=== PATIENT | male | born 1990 | race Caucasian/White ===

== ENCOUNTER 2016-07-31 14:30 | Emergency (ER) | payer OTHER ==
[2016-07-31 14:59] VITALS: BP 169/93; PULSE 122; RESP 20; TEMP 98.3
[2016-07-31] MEDS ORDERED: LORazepam 2 MG/ML SYRINGE IM STA (15:33)
[2016-07-31] MEDS ORDERED: IBUPROFEN 800 MG TAB PO STA (15:34)
--- NOTE | 2016-07-31 16:54 | ED ---
General Adult HPI - General Chief complaint: Neck Pain/Injury Stated complaint: Neck Pain /Anxiety Time Seen by Provider: 07/31/16 15:24 Source: patient Mode of arrival: ambulatory Limitations: no limitations - History of Present Illness Initial comments: This 26-year-old white male presents complaining of anxiety. He has a long- standing history of anxiety but it has been worse over the past several days. He states that he has been pacing continuously. He has had decreased sleep. He is unsure what triggered his anxiety. He states that he's been having some mild neck pain bilaterally and this seems to stress him out. He's been reading medical stuff on the Internet and is worried about any severe pathology. His mom is present as well and states that he has obsessive-compulsive problems as well. No other complaints or modifying factors. - Related Data Home Medications Medication Instructions Recorded Confirmed Ibuprofen [Motrin] 400 mg PO Q6HR PRN 07/31/16 07/31/16 Ibuprofen/Diphenhydramine HCl 1 cap PO HS PRN 07/31/16 07/31/16 [Advil Pm Liqui-Gels] Previous Rx's Medication Instructions Recorded ALPRAZolam [Xanax] 0.5 mg PO Q8HR PRN #15 tab 07/31/16 Cyclobenzaprine [Flexeril] 10 mg PO TID PRN #20 tab 07/31/16 Ibuprofen [Motrin] 800 mg PO Q8H PRN #20 tab 07/31/16 Allergies Allergy/AdvReac Type Severity Reaction Status Date / Time Penicillins Allergy Rash/Hives Verified 07/31/16 15:18 Review of Systems ROS Statement: Those systems with pertinent positive or pertinent negative responses have been documented in the HPI. ROS Other: All systems not noted in ROS Statement are negative. Past Medical History Past Medical History: No Reported History History of Any Multi-Drug Resistant Organisms: None Reported Past Surgical History: No Surgical Hx Reported Past Psychological History: Anxiety Smoking Status: Never smoker Past Alcohol Use History: Rare Past Drug Use History: None Reported General Exam - General Exam Comments Initial Comments: GENERAL: The patient is well nourished and well hydrated. VITAL SIGNS: Heart rate, blood pressure, respiratory rate reviewed as recorded in nurse's notes. EYES: Pupils are round and reactive. Extraocular movements are intact. No conjunctival / lid redness or swelling. ENT: No external evidence of injury, swelling, or ecchymosis. Airway is patent. Throat is clear. NECK: There is mild tenderness and muscle spasm in the bilateral paracervical musculature. No swelling or evidence of injury. No subcutaneous emphysema. Trachea is midline. No thyroid mass. HEART: Regular rate and rhythm. Good peripheral pulses. LUNGS/CHEST: Breath sounds clear and equal bilaterally. No rales, rhonchi, or wheezes. No ecchymosis, subcutaneous emphysema, or tenderness. ABDOMEN: Abdomen soft without tenderness. No palpable masses or organomegaly. No peritoneal signs. No abdominal wall swelling or ecchymosis. EXTREMITIES: No extremity tenderness. Normal muscle tone and function. No thoracolumbar tenderness. NEUROLOGIC: Sensation is grossly intact. Cranial nerve exam reveals face is symmetrical, tongue is midline, speech is clear. SKIN: No abrasions or ecchymosis is noted. No induration or masses noted. PSYCHIATRIC: Alert and oriented. Appears very anxious. Limitations: no limitations Course Vital Signs 07/31/16 14:56 Temperature 98.3 F Pulse Rate 122 H Respiratory 20 Rate Blood Pressure 169/93 O2 Sat by Pulse 98 Oximetry Medical Decision Making - Medical Decision Making The patient was seen and examined. He receives 1.5 mg of Ativan IM as well as 800 mg Motrin and he is feeling markedly improved on recheck. It is felt that he does have significant underlying anxiety. He may have a slight cervical strain as well. It is felt as though he is stable for discharge. He has an appointment with his practitioner tomorrow. It is felt as though he may benefit from being on an SSRI medication as they feel fit. Disposition Clinical Impression: Strain of neck muscle, Anxiety Disposition: HOME SELF-CARE Condition: Good Instructions: Cervical Strain (ED), Generalized Anxiety Disorder (ED) Prescriptions: ALPRAZolam [Xanax] 0.5 mg PO Q8HR PRN #15 tab PRN Reason: Anxiety Cyclobenzaprine [Flexeril] 10 mg PO TID PRN #20 tab PRN Reason: neck pain Ibuprofen [Motrin] 800 mg PO Q8H PRN #20 tab PRN Reason: Pain Referrals: Graeme Ott MD [Primary Care Provider] - 1-2 days Time of Disposition: 16:54
== END 2016-07-31 17:11 | disposition home or self-care (01) ==
LOC: EC 14:30
DX: S16.1XXA Strain of muscle, fascia and tendon at neck level, initial encounter (principal); F41.9 Anxiety disorder, unspecified; Z88.0 Allergy status to penicillin; X58.XXXA Exposure to other specified factors, initial encounter
CPT/HCPCS: 99283; 96372; J2060

== ENCOUNTER → 2016-08-06 | Outpatient (CLI) | payer OTHER ==
--- NOTE | 2016-08-06 18:34 | XR ---
EXAMINATION TYPE: XR cervical spine limited DATE OF EXAM: 08/06/2016 COMPARISON: NONE HISTORY: Neck pain TECHNIQUE: 3 views FINDINGS: Vertebra have normal spacing and alignment. Posterior elements are intact. Atlantoaxial fac et joint is normal. There are no cervical ribs. IMPRESSION: Negative cervical spine exam.
== END | disposition home or self-care (01) ==
LOC: RADXRMAIN 17:52
PROVIDERS: ATTEND Internal Medicine
DX: M54.2 Cervicalgia (principal)
CPT/HCPCS: 72040

== ENCOUNTER → 2016-08-12 | Outpatient (CLI) | payer OTHER ==
[2016-08-12 17:17] LABS: Basophils # (A) 0.1 k/uL (0-0.2); Basophils % (A) 1 %; CH 32.7; CHCM 36.8; Eosinophils # (A) 0.1 k/uL (0-0.7); Eosinophils % (A) 1 %; HCT 47.3 % (39.0-53.0); HDW 2.82; HGB 16.9 gm/dL (13.0-17.5); Luc # (Auto) 0.17; Luc % (Auto) 2; Lymphocytes # (A) 3.1 k/uL (1.0-4.8); Lymphocytes % (A) 37 %; MCH 31.8 pg (25.0-35.0); MCHC 35.7 g/dL (31.0-37.0); MCV 89.1 fL (80.0-100.0); Mean Platelet Volume 7.7; Monocytes # (A) 0.6 k/uL (0-1.0); Monocytes % (A) 7 %; Neutrophils # (A) 4.3 k/uL (1.3-7.7); Neutrophils % (A) 52 %; RBC 5.31 m/uL (4.30-5.90); WBC 8.3 k/uL (3.8-10.6); WBC (Perox) 7.98
[2016-08-12 17:27] LABS: ALT 80 U/L (21-72); AST 34 U/L (17-59); Alkaline Phosphatase 78 U/L (38-126); Anion Gap 12 mmol/L; Blood Urea Nitrogen 8 mg/dL (9-20); Calcium 9.6 mg/dL (8.4-10.2); Carbon Dioxide 27 mmol/L (22-30); Chloride 102 mmol/L (98-107); Glucose 101 mg/dL (74-99); Non-African American GFR(MDRD) >60 (>60 ml/min/1.73 sqM); Potassium 3.9 mmol/L (3.5-5.1); Sodium 141 mmol/L (137-145); Total Bilirubin 0.5 mg/dL (0.2-1.3); Total Protein 7.6 g/dL (6.3-8.2)
== END | disposition home or self-care (01) ==
LOC: LABWHC1 16:50
PROVIDERS: ATTEND Internal Medicine
DX: F41.9 Anxiety disorder, unspecified (principal); M54.12 Radiculopathy, cervical region
CPT/HCPCS: 36415; 80053; 84443; 85025

== ENCOUNTER → 2017-03-30 | Outpatient (CLI) | payer OTHER ==
[2017-03-30 14:50] LABS: T4, Free (Free Thyroxine) 1.02 ng/dL (0.78-2.19)
== END | disposition home or self-care (01) ==
LOC: LABWHC1 13:43
PROVIDERS: ATTEND Internal Medicine Interventional Cardiology
DX: E05.90 Thyrotoxicosis, unspecified without thyrotoxic crisis or storm (principal)
CPT/HCPCS: 36415; 84439; 84443; 84481

== ENCOUNTER 2017-04-02 23:44 | Emergency (ER) | payer OTHER ==
[2017-04-02 23:51] VITALS: RESP 16
--- NOTE | 2017-04-02 23:57 | ED ---
Nausea/Vomiting/Diarrhea HPI - General Chief complaint: Nausea/Vomiting/Diarrhea Stated complaint: poss food poisoning Time Seen by Provider: 04/02/17 23:57 Source: patient Mode of arrival: ambulatory Limitations: no limitations - History of Present Illness Initial comments: Patient presents with sudden onset diarrhea. Patient states she ate at fast food restaurant at noon today. States partially one hour later he began having profuse diarrhea every hour. Patient states he vomited once while in the waiting room at the ER. Patient denies blood in vomit or stools. She complains of mild bilateral lower abdominal cramping with bowel movements. Patient states no recent illnesses, everything was normal up until this afternoon. Patient febrile on arrival to ER, states she's had no other fevers prior. 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 Patient has had no medications prior to arrival. Patient denies any past medical history. Denies prior surgeries on her abdomen. MD complaint: nausea, vomiting, diarrhea, abdominal pain - Related Data Home Medications Medication Instructions Recorded Confirmed Ibuprofen [Motrin] 400 mg PO Q6HR PRN 07/31/16 07/31/16 Ibuprofen/Diphenhydramine HCl 1 cap PO HS PRN 07/31/16 07/31/16 [Advil Pm Liqui-Gels] Previous Rx's Medication Instructions Recorded ALPRAZolam [Xanax] 0.5 mg PO Q8HR PRN #15 tab 07/31/16 Cyclobenzaprine [Flexeril] 10 mg PO TID PRN #20 tab 07/31/16 Ibuprofen [Motrin] 800 mg PO Q8H PRN #20 tab 07/31/16 Acetaminophen Tab [Tylenol Tab] 650 mg PO Q4H PRN #30 tablet 04/03/17 Ciprofloxacin HCl [Cipro] 500 mg PO BID 3 Days #6 tab 04/03/17 Dicyclomine [Bentyl] 20 mg PO BID PRN #10 tablet 04/03/17 Trimethobenzamide [Tigan] 300 mg PO TID PRN #10 capsule 04/03/17 Allergies Allergy/AdvReac Type Severity Reaction Status Date / Time Penicillins Allergy Rash/Hives Verified 07/31/16 15:18 Review of Systems ROS Statement: Those systems with pertinent positive or pertinent negative responses have been documented in the HPI. ROS Other: All systems not noted in ROS Statement are negative. Constitutional: Reports: fever. Denies: chills, weakness Eyes: Denies: vision change ENT: Denies: ear pain, throat pain, congestion Respiratory: Denies: cough, dyspnea, wheezes, hemoptysis, stridor Cardiovascular: Denies: chest pain, palpitations, syncope Endocrine: Denies: fatigue Gastrointestinal: Reports: abdominal pain, nausea, vomiting, diarrhea. Denies: constipation, hematemesis, melena, hematochezia Genitourinary: Denies: urgency, dysuria, frequency, hematuria Musculoskeletal: Denies: joint swelling, arthralgia, myalgia Skin: Denies: rash, change in color Neurological: Denies: headache, confusion Past Medical History Past Medical History: No Reported History Additional Past Medical History / Comment(s): tachycardia History of Any Multi-Drug Resistant Organisms: None Reported Past Surgical History: No Surgical Hx Reported Past Psychological History: Anxiety Smoking Status: Never smoker Past Alcohol Use History: Rare Past Drug Use History: None Reported General Exam - General Exam Comments Initial Comments: Sitting up in bed alert. Appears mildly nauseated. Calm, pleasant, smiling, making jokes. Limitations: no limitations General appearance: alert, in no apparent distress Head exam: Present: atraumatic, normocephalic Eye exam: Present: normal appearance, PERRL, EOMI ENT exam: Present: normal oropharynx, mucous membranes moist Neck exam: Present: normal inspection. Absent: tenderness, meningismus, full ROM Respiratory exam: Present: normal lung sounds bilaterally. Absent: respiratory distress, wheezes, rales, rhonchi, stridor Cardiovascular Exam: Present: normal rhythm, tachycardia GI/Abdominal exam: Present: soft, hyperactive bowel sounds. Absent: distended, tenderness, guarding, rebound, rigid, hernia Extremities exam: Present: other (No gross deformities) Neurological exam: Present: alert, oriented X3 Psychiatric exam: Present: normal affect, normal mood Skin exam: Present: warm, dry, intact, normal color. Absent: rash, diaphoretic Course Vital Signs 04/02/17 04/03/17 04/03/17 23:45 00:39 01:27 Temperature 101.3 F H 98.7 F Pulse Rate 121 H 107 H 96 Respiratory 16 16 Rate Blood Pressure 133/80 124/78 O2 Sat by Pulse 98 98 Oximetry Medical Decision Making - Medical Decision Making Visual sudden onset diarrhea followed by vomiting, likely gastrointestinal illness possible flu versus foodborne illness. Tachycardic, patient states he has baseline tachycardia, mother at bedside confirms, has seen a physician for it. Will give IV fluids, Zofran, Toradol, Bentyl reevaluate. Abdomen is nontender, do not feel imaging test warranted at this time. 00:42 getting meds. HR improved to 101 after 1L IV fluids, will given 2nd. White blood cell count 14.9, likely reactive secondary to vomiting and diarrhea. No significant electrolyte abnormalities. Influenza negative LA 1.8 Patient tolerating oral intake in the ER. Tachycardia resolved, fever resolved. Severity Symptoms and Fever We'll Give Prescription of Antibiotics, Ciprofloxacin, As Well As Tylenol for Fevers, Tigan for Nausea Given QT Prolongation of Cipro, & bentyl for abd cramps. Patient updated without results. Understands need to follow up with primary care physician. Understands need to return to ER immediately if there are worsening symptoms including uncontrolled fevers, inability to tolerate oral intake, increased abdominal pain, localized abdominal pain to right lower quadrant or RUQ. Oral hydration discussed. Patient mother understand and agree , feel comfortable being discharged home this time. Abd pain resolved at time of discharge, abd remains nontender. - Lab Data Result diagrams: 04/03/17 00:20 04/03/17 00:20 Lab Results 04/03/17 04/03/17 04/03/17 Range/Units 00:20 00:20 00:20 WBC 14.9 H (3.8-10.6) k/uL RBC 5.52 (4.30-5.90) m/uL Hgb 17.3 (13.0-17.5) gm/dL Hct 49.5 (39.0-53.0) % MCV 89.7 (80.0-100.0) fL MCH 31.3 (25.0-35.0) pg MCHC 34.9 (31.0-37.0) g/dL RDW 12.6 (11.5-15.5) % Plt Count 263 (150-450) k/uL Neutrophils % 89 % Lymphocytes % 5 % Monocytes % 4 % Eosinophils % 2 % Basophils % 0 % Neutrophils # 13.3 H (1.3-7.7) k/uL Lymphocytes # 0.7 L (1.0-4.8) k/uL Monocytes # 0.5 (0-1.0) k/uL Eosinophils # 0.2 (0-0.7) k/uL Basophils # 0.0 (0-0.2) k/uL Sodium 142 (137-145) mmol/L Potassium 4.2 (3.5-5.1) mmol/L Chloride 103 (98-107) mmol/L Carbon Dioxide 23 (22-30) mmol/L Anion Gap 16 mmol/L BUN 12 (9-20) mg/dL Creatinine 1.00 (0.66-1.25) mg/dL Est GFR (MDRD) Af Amer >60 (>60 ml/min/1.73 sqM) Est GFR (MDRD) Non-Af >60 (>60 ml/min/1.73 sqM) Glucose 123 H (74-99) mg/dL Plasma Lactic Acid Jesus (0.7-2.0) mmol/L Calcium 10.0 (8.4-10.2) mg/dL Total Bilirubin 0.9 (0.2-1.3) mg/dL AST 31 (17-59) U/L ALT 66 (21-72) U/L Alkaline Phosphatase 94 (38-126) U/L Total Protein 8.4 H (6.3-8.2) g/dL Albumin 4.9 (3.5-5.0) g/dL Lipase 61 (23-300) U/L Urine Color Urine Appearance (Clear) Urine pH (5.0-8.0) Ur Specific [place] (1.001-1.035) Urine Protein (Negative) Urine Glucose (UA) (Negative) Urine Ketones (Negative) Urine Blood (Negative) Urine Nitrite (Negative) Urine Bilirubin (Negative) Urine Urobilinogen (<2.0) mg/dL Ur Leukocyte Esterase (Negative) Urine RBC (0-5) /hpf Urine WBC (0-5) /hpf Hyaline Casts (0-2) /lpf Urine Mucus (None) /hpf Influenza Type A RNA Not Detected (Not Detectd) Influenza Type B (PCR) Not Detected (Not Detectd) 04/03/17 04/03/17 Range/Units 00:36 00:50 WBC (3.8-10.6) k/uL RBC (4.30-5.90) m/uL Hgb (13.0-17.5) gm/dL Hct (39.0-53.0) % MCV (80.0-100.0) fL MCH (25.0-35.0) pg MCHC (31.0-37.0) g/dL RDW (11.5-15.5) % Plt Count (150-450) k/uL Neutrophils % % Lymphocytes % % Monocytes % % Eosinophils % % Basophils % % Neutrophils # (1.3-7.7) k/uL Lymphocytes # (1.0-4.8) k/uL Monocytes # (0-1.0) k/uL Eosinophils # (0-0.7) k/uL Basophils # (0-0.2) k/uL Sodium (137-145) mmol/L Potassium (3.5-5.1) mmol/L Chloride (98-107) mmol/L Carbon Dioxide (22-30) mmol/L Anion Gap mmol/L BUN (9-20) mg/dL Creatinine (0.66-1.25) mg/dL Est GFR (MDRD) Af Amer (>60 ml/min/1.73 sqM) Est GFR (MDRD) Non-Af (>60 ml/min/1.73 sqM) Glucose (74-99) mg/dL Plasma Lactic Acid Jesus 1.8 (0.7-2.0) mmol/L Calcium (8.4-10.2) mg/dL Total Bilirubin (0.2-1.3) mg/dL AST (17-59) U/L ALT (21-72) U/L Alkaline Phosphatase (38-126) U/L Total Protein (6.3-8.2) g/dL Albumin (3.5-5.0) g/dL Lipase (23-300) U/L Urine Color Yellow Urine Appearance Clear (Clear) Urine pH 6.0 (5.0-8.0) Ur Specific [place] 1.027 (1.001-1.035) Urine Protein 1+ H (Negative) Urine Glucose (UA) Negative (Negative) Urine Ketones 1+ H (Negative) Urine Blood Negative (Negative) Urine Nitrite Negative (Negative) Urine Bilirubin Negative (Negative) Urine Urobilinogen <2.0 (<2.0) mg/dL Ur Leukocyte Esterase Negative (Negative) Urine RBC 1 (0-5) /hpf Urine WBC 2 (0-5) /hpf Hyaline Casts 3 H (0-2) /lpf Urine Mucus Many H (None) /hpf Influenza Type A RNA (Not Detectd) Influenza Type B (PCR) (Not Detectd) Disposition Clinical Impression: Food poisoning, Diarrhea, Fever, Abdominal pain Disposition: HOME SELF-CARE Condition: Good Instructions: Acute Nausea and Vomiting (ED), Acute Diarrhea (ED), Abdominal Pain (ED) Additional Instructions: Followup with primary care physician 1-2 days. Return to ER immediately if new or worsening symptoms including increased abdominal pain, uncontrolled fevers, inability to tolerate oral intake. Prescriptions: Acetaminophen Tab [Tylenol Tab] 650 mg PO Q4H PRN #30 tablet PRN Reason: Fever Ciprofloxacin HCl [Cipro] 500 mg PO BID 3 Days #6 tab Dicyclomine [Bentyl] 20 mg PO BID PRN #10 tablet PRN Reason: Abdominal cramps Trimethobenzamide [Tigan] 300 mg PO TID PRN #10 capsule PRN Reason: Nausea Referrals: Graeme Ott MD [Primary Care Provider] - 1-2 days
[2017-04-03] MEDS ORDERED: SODIUM CHLORIDE 0.9% 2,000 ML IV STA (00:01)
[2017-04-03] MEDS ORDERED: ONDANSETRON ODT 4 MG TAB PO STA (00:01)
[2017-04-03] MEDS ORDERED: DICYCLOMINE 10 MG/ML 2 ML AMP IM STA (00:02)
[2017-04-03] MEDS ORDERED: KETOROLAC 30 MG/ML 1 ML VIAL IVP STA (00:02)
[2017-04-03] MEDS ORDERED: ACETAMINOPHEN TAB 325 MG TAB PO STA (00:05)
[2017-04-03 00:37] LABS: Basophils % (A) 0 %; Eosinophils # (A) 0.2 k/uL (0-0.7); Eosinophils % (A) 2 %; HCT 49.5 % (39.0-53.0); HGB 17.3 gm/dL (13.0-17.5); Lymphocytes # (A) 0.7 k/uL (1.0-4.8); Lymphocytes % (A) 5 %; MCH 31.3 pg (25.0-35.0); MCHC 34.9 g/dL (31.0-37.0); MCV 89.7 fL (80.0-100.0); Mean Platelet Volume 7.5; Monocytes # (A) 0.5 k/uL (0-1.0); Monocytes % (A) 4 %; Neutrophils # (A) 13.3 k/uL (1.3-7.7); Neutrophils % (A) 89 %; Platelet Count 263 k/uL (150-450); RBC 5.52 m/uL (4.30-5.90); RDW 12.6 % (11.5-15.5); WBC 14.9 k/uL (3.8-10.6)
[2017-04-03 00:40] VITALS: BP 124/78
[2017-04-03 00:45] LABS: ALT 66 U/L (21-72); AST 31 U/L (17-59); Albumin 4.9 g/dL (3.5-5.0); Alkaline Phosphatase 94 U/L (38-126); Anion Gap 16 mmol/L; Blood Urea Nitrogen 12 mg/dL (9-20); Carbon Dioxide 23 mmol/L (22-30); Chloride 103 mmol/L (98-107); Glucose 123 mg/dL (74-99); Lipase 61 U/L (23-300); Potassium 4.2 mmol/L (3.5-5.1); Sodium 142 mmol/L (137-145); Total Bilirubin 0.9 mg/dL (0.2-1.3); Total Protein 8.4 g/dL (6.3-8.2)
[2017-04-03 01:27] VITALS: PULSE 96; TEMP 98.7
[2017-04-03] MEDS ORDERED: DICYCLOMINE 20 MG TAB PO STA (01:27)
[2017-04-03 01:30] LABS: Appearance,Urine Clear (Clear); Bilirubin,Urine Negative (Negative); Blood,Urine Negative (Negative); Color,Urine Yellow; Glucose,Urine (UA) Negative (Negative); Hyaline Casts,Urine 3 /lpf (0-2); Ketones,Urine 1+ (Negative); Leukocyte Esterase,Urine Negative (Negative); Mucus,Urine Many /hpf; Nitrite,Urine Negative (Negative); Protein,Urine 1+ (Negative); RBC,Urine 1 /hpf (0-5); Specific Gravity,Urine 1.027 (1.001-1.035); Urobilinogen,Urine <2.0 mg/dL (<2.0); WBC,Urine 2 /hpf (0-5)
== END 2017-04-03 02:26 | disposition home or self-care (01) ==
LOC: EC 23:44
DX: A05.9 Bacterial foodborne intoxication, unspecified (principal); R00.0 Tachycardia, unspecified; Z88.0 Allergy status to penicillin; Z53.20 Procedure and treatment not carried out because of patient's decision for unspecified reasons
CPT/HCPCS: 36415; 80053; 83605; 83690; 85025; 81001; 87040; 87502; 99284; 96374; 96361 ×2; J1885

== ENCOUNTER → 2018-07-07 | Outpatient (CLI) | payer BC ==
--- NOTE | 2018-07-07 13:41 | US ---
EXAMINATION TYPE: US abdomen complete DATE OF EXAM: 07/07/2018 COMPARISON: NONE CLINICAL HISTORY: R10.13 Dyspepsia. Dyspepsia x many years. EXAM MEASUREMENTS: Liver Length: 15.0 cm Gallbladder Wall: 0.17 cm CBD: 0.44 cm Spleen: 11.6 cm Right Kidney: 9.6 x 5.6 x 6.4 cm Left Kidney: 12.2 x 5.4 x 5.7 cm Pancreas: Limited due to gas, portions seen appear wnl Liver: Anechoic area seen right lobe measurin.1 x 6.2 x 5.5 cm., Increased through transmission and imperceptible wall Increased echogenicity. Gallbladder: appears wnl Evidence for sonographic Chavez's sign: No CBD: appears wnl Spleen: appears wnl Right Kidney: No hydronephrosis or masses seen Left Kidney: No hydronephrosis or masses seen. Probable column of Tim seen. Upper IVC: appears wnl Abd Aorta: Limited visibility of proximal portion. Portions seen appear wnl. Kidneys show normal cortical medullary differentiation There is no ascites. IMPRESSION: Exam is somewhat limited. Correlate for hepatocellular disease, hepatic steatosis, probab le cyst within the posterior liver.
== END | disposition home or self-care (01) ==
LOC: RADUSWWP 10:01
PROVIDERS: ATTEND Internal Medicine
DX: R10.13 Epigastric pain (principal)
CPT/HCPCS: 76700

== ENCOUNTER → 2018-11-23 | Outpatient (CLI) | payer BC ==
--- NOTE | 2018-11-24 07:30 | US ---
EXAMINATION TYPE: US thyroid st tissue head/neck DATE OF EXAM: 11/23/2018 COMPARISON: NONE CLINICAL HISTORY: E04.9 GOITER. mother had thyroid cancer, palp at right submandible area that he has felt for years GLAND SIZE: Right Lobe: 5.1 x 1.3 x 1.8 cm Overall Parenchyma: homogenous Left Lobe: 4.4 x 1.4 x 1.2 cm Overall Parenchyma: homogeneous Isthmus Thickness: 0.3 cm NODULES RIGHT: # of nodules measured on right: 1 1. 0.6 X 0.6 x 0.6 cm hypoechoic solid nodule at the medial pole with well-defined margins. This n odule shows intranodular vascularity. Prior size: WAITRESS LEFT: # of nodules measured on left: 0 ISTHMUS: # of nodules measured in the isthmus: 0 Bilateral neck scanned, no evidence of lymphadenopathy. *right sided lymph node 2.4 x 1.7 x 0.7cm, fatty hilum still seen with vascularity noted, patient sta kianna it goes up in size when sick and back down afterwards IMPRESSION: 1. Solitary 6 mm right thyroid nodule. This appears solid and has internal vascularity however this i s too small for fine-needle aspiration at this time. Follow up thyroid ultrasound is recommended in 6 -12 months. 2. There is a single prominent right submandibular lymph node. This measures within normal limits of short axis and maintains a fatty hilum although is asymmetric from the left. This can be reassessed o n the follow-up exam. If there is clinical suspicion CT neck could further evaluate for additional ad enopathy more neck mass.
== END | disposition home or self-care (01) ==
LOC: RADUSWWP 15:35
PROVIDERS: ATTEND Internal Medicine
DX: E04.1 Nontoxic single thyroid nodule (principal); R59.0 Localized enlarged lymph nodes
CPT/HCPCS: 76536

== ENCOUNTER → 2018-11-30 | Outpatient (CLI) | payer BC ==
--- NOTE | 2018-11-30 10:36 | CT ---
EXAMINATION TYPE: CT soft tissue neck w con DATE OF EXAM: 11/30/2018 7:17 AM COMPARISON: Ultrasound 11/23/2018 HISTORY: Thyroid nodule CT DLP: 528.30 mGycm Automated exposure control for dose reduction was used. CONTRAST: CT scan of the neck is performed following with IV Contrast, patient injected with 100 mL of Isovue 3 00. Axial images are obtained, coronal and sagittal reformatted images are reviewed. FINDINGS: Airway: No gross abnormality seen. Parotid/submandibular glands: No gross abnormality seen. Carotid/Vascular Structures: Patent carotid arteries, transverse aorta, innominate, left and right segura bclavian arteries. Vertebral arteries are patent. Right vertebral artery is dominant. Osseous Structures: Within normal limits Other: Nonenlarged lymph nodes are present along the anterior cervical chains bilaterally. Patient's subtle thyroid nodule seen on ultrasound not well seen on CT. IMPRESSION: No significant abnormality is evident.
== END | disposition home or self-care (01) ==
LOC: RADCTMAIN 06:50
PROVIDERS: ATTEND Internal Medicine
DX: E04.1 Nontoxic single thyroid nodule (principal)
CPT/HCPCS: 70491; Q9967

== ENCOUNTER → 2019-11-24 | Outpatient (CLI) | payer BC ==
--- NOTE | 2019-11-24 10:38 | CT ---
EXAMINATION TYPE: CT abdomen pelvis wo con DATE OF EXAM: 11/24/2019 HISTORY: Left upper quadrant fullness and pain. CT DLP: 795.1 mGycm. Automated Exposure Control for Dose Reduction was Utilized. TECHNIQUE: CT scan of the abdomen and pelvis is performed with low oral but without IV contrast. COMPARISON: NONE FINDINGS: Within the limitations of a non-contrast study, the following observations are made. LUNG BASES: Heterogeneous geographic areas of low density consistent with areas of diffuse fatty infi ltration. LIVER/GB: No significant abnormality is appreciated. PANCREAS: No significant abnormality is seen. SPLEEN: No significant abnormality is seen. ADRENALS: Large right adrenal low-density mass measuring 5.9 x 5.4 x 5.7 cm. Local mass effect presen t. Hounsfield units average 12-15. Malignant etiology cannot be excluded. Follow-up advised. KIDNEYS: No renal stones or hydronephrosis seen bilaterally . BOWEL: The oral contrast reaches level of the splenic flexure. No suspicious small or large bowel dil atation. Normal contrast-filled appendix. GENITAL ORGANS: Prostate not enlarged. Occasional scattered pelvic phleboliths. LYMPH NODES: No greater than 1cm abdominal or pelvic lymph nodes are appreciated. OSSEOUS STRUCTURES: No significant abnormality is seen. OTHER: No significant additional abnormality is seen. IMPRESSION: 1. No suspicious abnormalities, for patient's complaint of left upper quadrant fullness and pain. 2. Low dense 5.9 cm right adrenal mass, Hounsfield units favor benign etiology but because greater th an 10 malignant etiology is not excluded. Follow-up adrenal protocol contrast enhanced CT or MRI advi sed. Local mass effect is present.
== END | disposition home or self-care (01) ==
LOC: RADCTMAIN 08:31
PROVIDERS: ATTEND Internal Medicine
DX: E27.8 Other specified disorders of adrenal gland (principal)
CPT/HCPCS: 74176

== ENCOUNTER → 2019-12-05 | Outpatient (CLI) | payer BC ==
--- NOTE | 2019-12-05 17:25 | US ---
EXAMINATION TYPE: US thyroid st tissue head/neck DATE OF EXAM: 12/05/2019 COMPARISON: 11/23/2018 CLINICAL HISTORY: 29-year-old male E04.1 THYROID NODULE. Followup. TECHNIQUE: Multiple sonographic images of the thyroid gland are obtained. FINDINGS: GLAND SIZE: Right Lobe: 4.8 x 1.9 x 1.8 cm Overall Parenchyma: homogenous Left Lobe: 4.3 x 1.6 x 1.1 cm Overall Parenchyma: homogeneous Isthmus Thickness: 0.3 cm NODULES RIGHT: # of nodules measured on right: 1 1. 0.5 X 0.6 x 0.5 cm hypoechoic solid nodule at the medial pole with well-defined margins. This nodule is wider than tall and shows intranodular vascularity. Prior size: 0.6 x 0.6 x 0.6 cm LEFT: # of nodules measured on left: 0 ISTHMUS: # of nodules measured in the isthmus: 0 Bilateral neck scanned: enlarged lymph node is again seen superior to right thyroid and size = 2.9 x 2.0 x 0.6cm (versus 2.4 x 1.7 x 0.7 cm on 11/23/2018). IMPRESSION: 1. Redemonstrated enlarged lymph node on the right side of the neck above the thyroid gland measuring 2.0 cm short axis versus 1.7 cm short axis on 11/23/2018. Relatively indolent behavior. Continued fol low-up recommended. 2. Solitary 6 mm nodule within the right lobe of the thyroid gland, unchanged from last year.
== END | disposition home or self-care (01) ==
LOC: RADUSWWP 16:15
PROVIDERS: ATTEND Internal Medicine
DX: E04.1 Nontoxic single thyroid nodule (principal); R59.9 Enlarged lymph nodes, unspecified
CPT/HCPCS: 76536

== ENCOUNTER 2021-09-25 18:29 | Emergency (ER) | payer BC, OTHER ==
[2021-09-25 19:09] VITALS: BP 126/86; RESP 22; TEMP 98.5
[2021-09-25 19:41] LABS: Basophils # (A) 0.1 k/uL (0-0.2); Basophils % (A) 1 %; Eosinophils # (A) 0.1 k/uL (0-0.7); Eosinophils % (A) 1 %; HCT 50.2 % (39.0-53.0); HGB 17.1 gm/dL (13.0-17.5); Lymphocytes # (A) 2.1 k/uL (1.0-4.8); Lymphocytes % (A) 20 %; MCHC 34.1 g/dL (31.0-37.0); Mean Platelet Volume 7.8; Monocytes # (A) 0.5 k/uL (0-1.0); Monocytes % (A) 5 %; Neutrophils # (A) 7.6 k/uL (1.3-7.7); Neutrophils % (A) 72 %; Platelet Count 293 k/uL (150-450); RBC 5.51 m/uL (4.30-5.90); RDW 12.8 % (11.5-15.5); WBC 10.6 k/uL (3.8-10.6)
[2021-09-25 19:56] LABS: ALT 74 U/L (4-49); African American GFR (CKD) >90 (>60 ml/min/1.73 sqM); Anion Gap 14 mmol/L; Blood Urea Nitrogen 11 mg/dL (9-20); Calcium 10.7 mg/dL (8.4-10.2); Carbon Dioxide 21 mmol/L (22-30); Chloride 103 mmol/L (98-107); Glucose 105 mg/dL (74-99); Non-African American GFR(CKD) >90 (>60 ml/min/1.73 sqM); Sodium 138 mmol/L (137-145); Total Bilirubin 0.9 mg/dL (0.2-1.3)
[2021-09-25 20:02] LABS: AST 55 U/L (17-59); Albumin 5.1 g/dL (3.5-5.0); Alkaline Phosphatase 71 U/L (38-126); Potassium 4.3 mmol/L (3.5-5.1); Total Protein 8.3 g/dL (6.3-8.2)
[2021-09-25 22:17] VITALS: PULSE 92
--- NOTE | 2021-09-25 22:19 | XR ---
EXAMINATION TYPE: XR chest 2V DATE OF EXAM: 09/25/2021 COMPARISON: NONE HISTORY: Cough and chest pain TECHNIQUE: 2 view FINDINGS: Heart and mediastinum are normal. Lungs are clear. Diaphragm is normal. Bony thorax appears normal. IMPRESSION: Normal chest.
--- NOTE | 2021-09-26 00:04 | ED ---
Chest Pain HPI - General Chief Complaint: Chest Pain Stated Complaint: chest pain Time Seen by Provider: 09/25/21 21:45 Source: patient Mode of arrival: ambulatory Limitations: no limitations - History of Present Illness Initial Comments: 31-year-old male with history of anxiety presents emergency room with reported chest pain. Patient states that earlier today he had sudden onset of shortness of breath, palpitations and chest pain. Episode happened around 6 PM prior to cooking dinner. Denies any stressful triggers. Symptoms lasted approximately 20 minutes before they resolve. He denies history of cardiac disease. Does admit to a history of elevated heart rate and follows with Dr. Field. 4 years ago the patient had an echo. He does not take any medications for elevated heart rate. No family history of sudden cardiac . No fevers chills or cough. No calf pain or swelling. No history of DVT or PE. No other alleviating, precipitating or modifying factors - Related Data Home Medications Medication Instructions Recorded Confirmed Triamcinolone 0.1% Cream [Kenalog 1 applicatio TOPICAL BID 09/25/21 09/25/21 0.1% Cream] clonazePAM [KlonoPIN] 0.5 mg PO BID PRN 09/25/21 09/25/21 Previous Rx's Medication Instructions Recorded Propranolol [Inderal] 20 mg PO DAILY PRN #20 tab 09/26/21 Allergies Allergy/AdvReac Type Severity Reaction Status Date / Time Penicillins Allergy Rash/Hives Verified 09/25/21 22:52 Review of Systems ROS Statement: Those systems with pertinent positive or pertinent negative responses have been documented in the HPI. ROS Other: All systems not noted in ROS Statement are negative. EKG Findings - EKG Comments: EKG Findings:: EKG demonstrates sinus tachycardia with a rate of 131. SD interval 138. QRS 88. QTC of 393. No acute ST segment elevations or depressions Past Medical History Past Medical History: No Reported History Additional Past Medical History / Comment(s): tachycardia History of Any Multi-Drug Resistant Organisms: None Reported Past Surgical History: No Surgical Hx Reported Past Psychological History: Anxiety Smoking Status: Never smoker Past Alcohol Use History: Rare Past Drug Use History: None Reported General Exam Limitations: no limitations General appearance: alert, in no apparent distress Head exam: Present: atraumatic, normocephalic, normal inspection Eye exam: Present: normal appearance, PERRL, EOMI. Absent: scleral icterus, conjunctival injection, periorbital swelling ENT exam: Present: normal exam, mucous membranes moist Neck exam: Present: normal inspection. Absent: tenderness, meningismus, lymphadenopathy Respiratory exam: Present: normal lung sounds bilaterally. Absent: respiratory distress, wheezes, rales, rhonchi, stridor Cardiovascular Exam: Present: normal rhythm, tachycardia, normal heart sounds. Absent: systolic murmur, diastolic murmur, rubs, gallop, clicks GI/Abdominal exam: Present: soft, normal bowel sounds. Absent: distended, tenderness, guarding, rebound, rigid Extremities exam: Present: normal inspection, full ROM, normal capillary refill. Absent: tenderness, pedal edema, joint swelling, calf tenderness Back exam: Present: normal inspection Neurological exam: Present: alert, oriented X3, CN II-XII intact Psychiatric exam: Present: normal affect, normal mood Skin exam: Present: warm, dry, intact, normal color. Absent: rash Course Vital Signs 09/25/21 09/25/21 19:06 22:12 Temperature 98.5 F Pulse Rate 65 Pulse Rate [ 92 Apical] Respiratory 22 Rate Blood Pressure 126/86 O2 Sat by Pulse 99 Oximetry Chest Pain MDM - MDM Upon arrival patient was placed in room 16. Thorough history and physical exam was performed. 12-lead EKG was obtained. Laboratory studies are conducted and reviewed. Results are discussed the patient. I did discuss the diagnosis, differential and treatment options. Patient will be discharged home and is asked to follow up with the cardiology office. I will place him on propranolol prn to see if this helps with his symptoms. Return to the emergency room for any worsening symptoms. Patient discharged home in stable condition Disposition Clinical Impression: Chest pain, Palpitations Disposition: HOME SELF-CARE Condition: Stable Instructions (If sedation given, give patient instructions): Chest Pain (ED) Additional Instructions: Please follow-up with the cardiology office for further evaluation. They may want to repeat a Holter monitor study and an echo. Return to the emergency department for any new or worsening symptoms Prescriptions: Propranolol [Inderal] 20 mg PO DAILY PRN #20 tab PRN Reason: Anxiety Is patient prescribed a controlled substance at d/c from ED?: No Referrals: Alma Real MD [Primary Care Provider] - 1-2 days Time of Disposition: 00:04
== END 2021-09-26 00:14 | disposition home or self-care (01) ==
LOC: EC 18:29
DX: R07.9 Chest pain, unspecified (principal); R00.2 Palpitations; Z88.0 Allergy status to penicillin
CPT/HCPCS: 36415; 71046; 80053; 84484; 85025; 93005; 99285

== ENCOUNTER → 2023-03-17 | Outpatient (CLI) | payer BC ==
--- NOTE | 2023-03-17 16:28 | P.SLEEP ---
History of Present Illness H&P Date: 03/17/23 Patient is a 33-year-old male patient who is coming in to be investigated for sleep apnea. The patient has excessive tiredness and sleepiness during the day. He has a bed partner and she has clearly reported that the patient snores and quits breathing at night and he wakes up choking and gasping for air. As such, she gives an adequate description of sleep apnea. The patient feels tired and sleepy during the day and sometimes he has difficulties in keeping his eyes open and his sleepiness takes him more whenever he is going back and forth to work. Note that the patient has a short drive to work and he is currently working for [employer] and he lives locally and he has a short drive. No history of any motor vehicle accidents because of feeling drowsy or sleepy. He goes to bed around 11 PM, wakes up 6 AM in the morning and this is during regular weekdays. On weekends, he is sleeping at around midnight and waking up with 10 to 11 AM in the morning. It takes a few minutes to fall asleep. He tries to sleep in different body positions more so on his side. Frequently, he arrives home and he takes a nap at around 5 PM and sometimes dyspnea can extend up to an hour. His weight is up by around 10 pounds over the past 1 year. No sleep paralysis. No hallucinations. No cataplexy. His current Roscoe score is at 9. No history of any head trauma. He has chronic history of anxiety and depression. Past medical history includes chronic anxiety, depression, panic attack, tachycardia, he is also known to have an adrenal nodule followed by endocrinology Past surgical history is none Allergies penicillins Medication includes Celexa 20 mg p.o. daily, clonazepam 1 mg twice a day metoprolol dose is not known. Social history the patient is a non-smoker. Most of alcoholism. No history of IV drugs or substance abuse Family history. The patient does not know his family history well. Review of system a 14 point review of system was done and opacifies the remainder of the history of present illness. Otherwise, nothing different other than the things mentioned above BP is 122/81 with a pulse of 102 respiration 14 temperature is 98.4 and the height is 511 and the weight is 244 with a body mass index of 33.3. The size of the neck is 18 inches with an Roscoe score of 9. The patient appeared well nourished and normally developed. Vital signs as documented. Head exam is unremarkable. No scleral icterus or corneal arcus noted. The patient is a Mallampati class II. No significant overbite. Neck is without jugular venous distension, thyromegaly, or carotid bruits. Carotid upstrokes are brisk bilaterally. Lungs are clear to auscultation and percussion. Cardiac exam reveals the PMI to be normally sized and situated. Rhythm is regular. First and second heart sounds normal. No murmurs, rubs or gallops. Abdominal exam reveals normal bowel sounds, no masses, no organomegaly and no aortic enlargement. Extremities are nonedematous and both femoral and pedal pulses are normal. Examination of the skin revealed no evidence of significant rashes, suspicious appearing nevi or other concerning lesions. Neurologically, the patient is awake and alert and the patient does not have any focal neurological deficit. Cranial nerves are essentially intact. Assessment Chronic hypersomnia with an Roscoe score of 9. Rule out underlying obstructive sleep apnea Loud snoring with witnessed apneas suspicious for obstructive sleep apnea. Chronic anxiety/depression maintained on Celexa and clonazepam. History of sinus tachycardia maintained on beta-blockers History of adrenal nodules Plan Will sign of this patient for screening polysomnography will make decision on treatment options if needed. Meanwhile, the patient was advised to lose weight. Maintain regular sleep schedule. Sleep hours on average of 8 to 9 hours even during weekdays. Maintain good sleep hygiene measures. Will continue to follow. Past Medical History Past Medical History: No Reported History Additional Past Medical History / Comment(s): tachycardia History of Any Multi-Drug Resistant Organisms: None Reported Past Surgical History: No Surgical Hx Reported Past Psychological History: Anxiety Smoking Status: Never smoker Past Alcohol Use History: Rare Past Drug Use History: None Reported Medications and Allergies Home Medications Medication Instructions Recorded Confirmed Type clonazePAM [KlonoPIN] 0.5 mg PO BID PRN 09/25/21 10/10/21 History Propranolol [Inderal] 20 mg PO DAILY PRN #20 tab 09/26/21 10/10/21 Rx Allergies Allergy/AdvReac Type Severity Reaction Status Date / Time Penicillins Allergy Rash/Hives Verified 10/10/21 17:19 Sleep Note - Sleep Note Sleep Note: Temperature: Pulse Rate: Respiratory Rate: Blood Pressure: SpO2: Height: Weight: BMI: Neck Circumference:
== END ==
LOC: 3 N SLEEP 14:27
PROVIDERS: ATTEND Internal Medicine Critical Care Medicine
DX: G47.10 Hypersomnia, unspecified (principal); F41.9 Anxiety disorder, unspecified; F32.A Depression, unspecified; R06.83 Snoring; Z86.39 Personal history of other endocrine, nutritional and metabolic disease; Z86.79 Personal history of other diseases of the circulatory system; Z88.0 Allergy status to penicillin
CPT/HCPCS: 99211

== ENCOUNTER → 2023-04-07 | Outpatient (CLI) | payer BC ==
--- NOTE | 2023-04-08 12:46 | US ---
EXAMINATION TYPE: US thyroid st tissue head/neck DATE OF EXAM: 04/07/2023 COMPARISON: 12/05/2019 CLINICAL INDICATION: Male, 33 years old with history of E04.1 NONTOXIC SINGLE THYROID NODULE; thyroid nodule GLAND SIZE: Right Lobe: 5.0 x 1.7 x 1.7 cm Overall Parenchyma: homogeneous Left Lobe: 4.7 x 1.2 x 1.7 cm Overall Parenchyma: homogeneous Isthmus Thickness: .4 cm NODULES RIGHT: # of nodules measured on right: 0 LEFT: # of nodules measured on left: 0 ISTHMUS: # of nodules measured in the isthmus: 1 1. Within the right isthmus, 0. 5 X 0.4 x 0.6 cm solid or almost completely solid, hypoechoic TR 4 nodule, which is wider than tall, with smooth margins, without echogenic foci. Prior size: .5 x .5 x .6 cm Bilateral neck scanned, no evidence of lymphadenopathy. IMPRESSION: Borderline thyromegaly. Stable solitary 6 mm TR4 nodule in the right thyroid isthmus. 2017 ACR TI-RADS LEVEL: TR-RADS 4 - Moderately Suspicious: Follow if > 1 cm, FNA if > 1.5 cm *Highest TI-RADS level nodule reported
== END | disposition home or self-care (01) ==
LOC: RADUSWWP 15:07
PROVIDERS: ATTEND Internal Medicine Geriatric Medicine
DX: E04.2 Nontoxic multinodular goiter (principal); R22.0 Localized swelling, mass and lump, head
CPT/HCPCS: 76536

== ENCOUNTER → 2023-04-24 | Outpatient (CLI) | payer BC ==
--- NOTE | 2023-05-04 20:11 | P.PCN ---
Date of Procedure: 04/24/23 Operative Findings: Home sleep study testing Date of services 04/25/2023 Pertinent history This is a 33-year-old male patient who was seen in the sleep center due to concerns of obstructive sleep apnea. The patient reported excessive tiredness and sleepiness during the day. He has been told also to snore and noted to quit breathing at nighttime. He had an Carrington score of 9. He has chronic anxiety depression maintained on a combination of Celexa and clonazepam. He has history of sinus tachycardia maintained on beta-blockers. Home sleep study was obtained to evaluate this patient for sleep apnea Pertinent physical findings The patient had a height of 5 feet 11 inches, weight is 244 pounds and a body mass index is 33.3 Technical description The [employer] apnea link system was used to complete this home sleep study. This is a type III home sleep study evaluation. The total recording duration was 9 hours and 2 minutes. The study started at 1:54 AM and it ended at 10:57 AM. There was a total of 8 hours and 50 minutes of flow evaluation and 8 hours and 50 minutes of oxygen saturation evaluation. Results The respiratory analysis showed a total of 4 obstructive apneas and 16 obstructive hypopneas and the resulting AHI was 2.3. Oxygenation analysis The baseline pulse ox was 96%, average pulse ox during sleep was 93% and the patient spent majority of the sleep time above pulse ox of 89%. No significant desaturations were encountered Cardiac summary Average heart rate was 60, with a minimum heart rate of 47 and a maximum heart rate of 117 Assessment Primary snoring, without evidence of any significant sleep breathing disorder. AHI was 2.3 No evidence of any nocturnal oxygen saturations No evidence of any nocturnal tachycardia and average heart rate was 60 and there was no significant nocturnal tachycardia. Chronic anxiety/depression maintained on a combination of Celexa and clonazepam Plan Patient will be reassured. No evidence of any sleep breathing disorder. The patient has primary snoring without evidence of any sleep apnea. No significant nocturnal tachycardia. Continue Inderal. Continue clonazepam and Celexa for chronic anxiety/depression. Implement good sleep hygiene measures. Maintain regular sleep schedule. No need for CPAP therapy. This is a negative home sleep study. If atrial fibrillation is a concern, the prolonged Holter monitor is suggested and this will be left up to his director script.
== END ==
LOC: 3 N SLEEP 12:40
PROVIDERS: ATTEND Internal Medicine Critical Care Medicine
DX: R06.83 Snoring (principal); F41.9 Anxiety disorder, unspecified; F32.A Depression, unspecified; Z88.0 Allergy status to penicillin

== ENCOUNTER 2024-03-11 17:18 | Emergency (ER) | payer BC ==
--- NOTE | 2024-03-11 19:04 | ED ---
General Adult HPI - General Chief complaint: Fever Stated complaint: fever joint pain Time Seen by Provider: 03/11/24 19:02 Source: patient, RN notes reviewed Mode of arrival: ambulatory Limitations: no limitations - History of Present Illness Initial comments: 34-year-old male presents to the emergency department for evaluation of fever. He notes that he has been running a fever on and off for the past 1.5 days. He states that he had a fever of 103 degrees at home last night and took Tylenol around 2 AM. He has not taken any antipyretics since then. He admits to cough yesterday along with sore throat. Admits to myalgias. He reports a history of tachycardia and takes metoprolol 12.5 mg twice daily. - Related Data Home Medications Medication Instructions Recorded Confirmed clonazePAM [KlonoPIN] 0.5 mg PO BID PRN 09/25/21 10/10/21 Previous Rx's Medication Instructions Recorded Propranolol [Inderal] 20 mg PO DAILY PRN #20 tab 09/26/21 Allergies Allergy/AdvReac Type Severity Reaction Status Date / Time Penicillins Allergy Rash/Hives Verified 03/11/24 18:47 Review of Systems ROS Statement: Those systems with pertinent positive or pertinent negative responses have been documented in the HPI. ROS Other: All systems not noted in ROS Statement are negative. Past Medical History Past Medical History: No Reported History Additional Past Medical History / Comment(s): tachycardia History of Any Multi-Drug Resistant Organisms: None Reported Past Surgical History: No Surgical Hx Reported Past Psychological History: Anxiety Smoking Status: Never smoker Past Alcohol Use History: Rare Past Drug Use History: None Reported General Exam Limitations: no limitations General appearance: alert, in no apparent distress Head exam: Present: atraumatic, normocephalic, normal inspection Eye exam: Present: normal appearance, PERRL, EOMI. Absent: scleral icterus, conjunctival injection, periorbital swelling ENT exam: Absent: normal oropharynx (Erythematous), TM's normal bilaterally (Unable to be visualized due to cerumen impaction) Neck exam: Present: normal inspection, full ROM. Absent: tenderness, meningismus, lymphadenopathy Respiratory exam: Present: normal lung sounds bilaterally. Absent: respiratory distress, wheezes, rales, rhonchi, stridor Cardiovascular Exam: Present: normal rhythm, tachycardia, normal heart sounds. Absent: systolic murmur, diastolic murmur, rubs, gallop, clicks GI/Abdominal exam: Present: soft. Absent: distended, tenderness, guarding, rebound, rigid Extremities exam: Present: normal inspection, full ROM, normal capillary refill. Absent: tenderness, pedal edema, joint swelling, calf tenderness Neurological exam: Present: alert, oriented X3 Psychiatric exam: Present: normal affect, normal mood Skin exam: Present: warm, dry, intact, normal color. Absent: rash Course Vital Signs 03/11/24 03/11/24 03/11/24 18:47 20:41 21:23 Temperature 102.4 F H 101.0 F H 101.7 F H Pulse Rate 136 H 113 H 115 H Respiratory 20 18 14 Rate Blood Pressure 101/49 119/73 112/71 O2 Sat by Pulse 99 95 95 Oximetry 03/11/24 21:52 Temperature 100 F H Pulse Rate 102 H Respiratory 16 Rate Blood Pressure 117/76 O2 Sat by Pulse 95 Oximetry Medical Decision Making - Medical Decision Making Was pt. sent in by a medical professional or institution (Dr. PA, DEVELOPER PROGRAMMER ANALYST, urgent care, hospital, or [facility]...) When possible be specific @ -[No] Did you speak to anyone other than the patient for history (EMS, parent, family, police, friend...)? What history was obtained from this source @ -[No] Did you review nursing and triage notes (agree or disagree)? Why? @ -[I reviewed and agree with nursing and triage notes] Were old charts reviewed (outside hosp., previous admission, EMS record, old EKG, old radiological studies, urgent care reports/EKG's, [facility] records)? Report findings @ -[No old charts were reviewed] Differential Diagnosis (chest pain, altered mental status, abdominal pain women, abdominal pain men, vaginal bleeding, weakness, fever, dyspnea, syncope, headache, dizziness, GI bleed, back pain, seizure, CVA, palpatations, mental health, musculoskeletal)? @ -[Differential Fever: Pneumonia, viral URI, endocarditis, myocarditis, pericarditis, otitis, sinusitis, peritonsillar Abscess, retropharyngeal Abscess, epiglottitis, peritonitis, appendicitis, Nadine cystitis, diverticulitis, hepatitis, colitis, UTI, PID, TOA, pyelonephritis, prostatitis, epididymitis, meningitis, encephalitis, pulmonary embolism, CVA, thyroid storm, pancreatitis, adrenal crisis, cavernous sinus thrombosis, this is not meant to be an all-inclusive list. ] EKG interpreted by me (3pts min.). @ -EKG at 1940 sinus tachycardia rate 120, NC 155, QRS 100, QT/QTc [id number] X-rays interpreted by me (1pt min.). @ -[None done] CT interpreted by me (1pt min.). @ -[None done] U/S interpreted by me (1pt. min.). @ -[None done] What testing was considered but not performed or refused? (CT, X-rays, U/S, labs)? Why? @ -[None] What meds were considered but not given or refused? Why? @ -[None] Did you discuss the management of the patient with other professionals (professionals i.e. , PA, DEVELOPER PROGRAMMER ANALYST, lab, RT, psych nurse, social worker masters, accounting advisory services manager, teacher, youth probation officer, case hardener)? Give summary @ -[No] Was smoking cessation discussed for >3mins.? @ -[No] Was critical care preformed (if so, how long)? @ -[No] Were there social determinants of health that impacted care today? How? (Homelessness, low income, unemployed, alcoholism, drug addiction, transportation, low edu. Level, literacy, decrease access to med. care, fdc, rehab)? @ -[No] Was there de-escalation of care discussed even if they declined (Discuss DNR or withdrawal of care, Hospice)? DNR status @ -[No] What co-morbidities impacted this encounter? (DM, HTN, Smoking, COPD, CAD, Cancer, CVA, ARF, Chemo, Hep., AIDS, mental health diagnosis, sleep apnea, morbid obesity)? @ -[None] Was patient admitted / discharged? Hospital course, mention meds given and route, prescriptions, significant lab abnormalities, going to OR and other pertinent info. @ -[hospital course] Undiagnosed new problem with uncertain prognosis? @ -[No] Drug Therapy requiring intensive monitoring for toxicity (Heparin, Nitro, Insulin, Cardizem)? @ -[No] Were any procedures done? @ -[No] Diagnosis/symptom? @ -[default] Acute, or Chronic, or Acute on Chronic? @ -[default] Uncomplicated (without systemic symptoms) or Complicated (systemic symptoms)? @ -[default] Side effects of treatment? @ -[No] Exacerbation, Progression, or Severe Exacerbation? @ -[No] Poses a threat to life or bodily function? How? (Chest pain, USA, VT, pneumonia, PE, COPD, DKA, ARF, appy, cholecystitis, CVA, Diverticulitis, Homicidal, Suicidal, threat to staff... and all critical care pts) @ -[No] - Lab Data Result diagrams: 03/11/24 19:40 03/11/24 19:40 Lab Results 03/11/24 03/11/24 03/11/24 Range/Units 19:40 19:40 19:40 WBC 7.6 (3.8-10.6) k/uL RBC 5.01 (4.30-5.90) m/uL Hgb 15.7 (13.0-17.5) gm/dL Hct 45.9 (39.0-53.0) % MCV 91.6 (80.0-100.0) fL MCH 31.3 (25.0-35.0) pg MCHC 34.1 (31.0-37.0) g/dL RDW 12.5 (11.5-15.5) % Plt Count 186 (150-450) k/uL MPV 7.6 Neutrophils % 73 % Lymphocytes % 10 % Monocytes % 14 % Eosinophils % 1 % Basophils % 1 % Neutrophils # 5.5 (1.3-7.7) k/uL Lymphocytes # 0.8 L (1.0-4.8) k/uL Monocytes # 1.0 (0-1.0) k/uL Eosinophils # 0.1 (0-0.7) k/uL Basophils # 0.1 (0-0.2) k/uL Sodium (137-145) mmol/L Potassium (3.5-5.1) mmol/L Chloride (98-107) mmol/L Carbon Dioxide (22-30) mmol/L Anion Gap mmol/L BUN (9-20) mg/dL Creatinine (0.66-1.25) mg/dL Est GFR (CKD-EPI)AfAm (>60 ml/min/1.73 sqM) Est GFR (CKD-EPI)NonAf (>60 ml/min/1.73 sqM) Glucose (74-99) mg/dL Calcium (8.4-10.2) mg/dL Total Bilirubin (0.2-1.3) mg/dL AST (17-59) U/L ALT (4-49) U/L Alkaline Phosphatase (38-126) U/L Total Protein (6.3-8.2) g/dL Albumin (3.5-5.0) g/dL Heterophile Antibody Negative (Negative) Influenza Type A (PCR) Detected A (Not Detectd) Influenza Type B (PCR) Not Detected (Not Detectd) RSV (PCR) Not Detected (Not Detectd) SARS-CoV-2 (PCR) Not Detected (Not Detectd) Group A Strep (PCR) (Not Detectd) 03/11/24 03/11/24 Range/Units 19:40 20:11 WBC (3.8-10.6) k/uL RBC (4.30-5.90) m/uL Hgb (13.0-17.5) gm/dL Hct (39.0-53.0) % MCV (80.0-100.0) fL MCH (25.0-35.0) pg MCHC (31.0-37.0) g/dL RDW (11.5-15.5) % Plt Count (150-450) k/uL MPV Neutrophils % % Lymphocytes % % Monocytes % % Eosinophils % % Basophils % % Neutrophils # (1.3-7.7) k/uL Lymphocytes # (1.0-4.8) k/uL Monocytes # (0-1.0) k/uL Eosinophils # (0-0.7) k/uL Basophils # (0-0.2) k/uL Sodium 135 L (137-145) mmol/L Potassium 3.5 (3.5-5.1) mmol/L Chloride 99 (98-107) mmol/L Carbon Dioxide 26 (22-30) mmol/L Anion Gap 10 mmol/L BUN 13 (9-20) mg/dL Creatinine 1.07 (0.66-1.25) mg/dL Est GFR (CKD-EPI)AfAm >90 (>60 ml/min/1.73 sqM) Est GFR (CKD-EPI)NonAf >90 (>60 ml/min/1.73 sqM) Glucose 95 (74-99) mg/dL Calcium 9.1 (8.4-10.2) mg/dL Total Bilirubin 0.8 (0.2-1.3) mg/dL AST 46 (17-59) U/L ALT 58 H (4-49) U/L Alkaline Phosphatase 65 (38-126) U/L Total Protein 7.1 (6.3-8.2) g/dL Albumin 4.3 (3.5-5.0) g/dL Heterophile Antibody (Negative) Influenza Type A (PCR) (Not Detectd) Influenza Type B (PCR) (Not Detectd) RSV (PCR) (Not Detectd) SARS-CoV-2 (PCR) (Not Detectd) Group A Strep (PCR) NOT DETECTED (Not Detectd) Disposition Clinical Impression: Influenza A Disposition: HOME SELF-CARE Condition: Stable Instructions (If sedation given, give patient instructions): Fever in Adults (ED), Influenza (ED) Additional Instructions: Please alternate Tylenol and Motrin for fever and discomfort. Follow up with your primary care provider. Return to the emergency department for new or worsening symptoms. Is patient prescribed a controlled substance at d/c from ED?: No Referrals: Melonie Romo NPC [Primary Care Provider] - 1-2 days
[2024-03-11 20:11] LABS: Basophils # (A) 0.1 k/uL (0-0.2); Basophils % (A) 1 %; Eosinophils # (A) 0.1 k/uL (0-0.7); Eosinophils % (A) 1 %; HCT 45.9 % (39.0-53.0); HGB 15.7 gm/dL (13.0-17.5); Lymphocytes # (A) 0.8 k/uL (1.0-4.8); Lymphocytes % (A) 10 %; MCH 31.3 pg (25.0-35.0); MCHC 34.1 g/dL (31.0-37.0); MCV 91.6 fL (80.0-100.0); Mean Platelet Volume 7.6; Monocytes % (A) 14 %; Neutrophils # (A) 5.5 k/uL (1.3-7.7); Neutrophils % (A) 73 %; Platelet Count 186 k/uL (150-450); RBC 5.01 m/uL (4.30-5.90); RDW 12.5 % (11.5-15.5); WBC 7.6 k/uL (3.8-10.6)
[2024-03-11] MEDS: ACETAMINOPHEN TAB 500 MG TAB PO STA (20:12)
[2024-03-11] MEDS: IBUPROFEN 800 MG TAB PO STA (20:12)
[2024-03-11] MEDS: SODIUM CHLORIDE 0.9% 1,000 ML IV ONE (20:12)
[2024-03-11 20:24] LABS: ALT 58 U/L (4-49); AST 46 U/L (17-59); African American GFR (CKD) >90 (>60 ml/min/1.73 sqM); Albumin 4.3 g/dL (3.5-5.0); Alkaline Phosphatase 65 U/L (38-126); Anion Gap 10 mmol/L; Blood Urea Nitrogen 13 mg/dL (9-20); Calcium 9.1 mg/dL (8.4-10.2); Carbon Dioxide 26 mmol/L (22-30); Chloride 99 mmol/L (98-107); Glucose 95 mg/dL (74-99); Non-African American GFR(CKD) >90 (>60 ml/min/1.73 sqM); Potassium 3.5 mmol/L (3.5-5.1); Sodium 135 mmol/L (137-145); Total Bilirubin 0.8 mg/dL (0.2-1.3); Total Protein 7.1 g/dL (6.3-8.2)
[2024-03-11 20:48] LABS: Influenza A Detected (Not Detectd); Influenza B Not Detected (Not Detectd); RSV Not Detected (Not Detectd)
[2024-03-11 21:54] VITALS: BP 117/76; PULSE 102; RESP 16; TEMP 100
--- NOTE | 2024-03-11 22:02 | XR ---
EXAMINATION TYPE: XR chest 2V DATE OF EXAM: 03/11/2024 8:30 PM COMPARISON: 10/10/2021 CLINICAL INDICATION: Male, 34 years old with history of cough,fever, TECHNIQUE: XR chest 2V view(s) obtained. FINDINGS: The heart size is normal. The pulmonary vasculature is normal. Some minimal subsegmental atelectasis may be at the cardiac apex. Lung wiseman otherwise appear clear. . IMPRESSION: 1. Minimal infiltrate at the cardiac apex likely some subsegmental atelectasis. [facility], Workstation: [facility], 03/11/2024 10:00 PM
== END 2024-03-11 21:54 | disposition home or self-care (01) ==
LOC: EC 17:18
DX: J10.1 Influenza due to other identified influenza virus with other respiratory manifestations (principal); Z88.0 Allergy status to penicillin
CPT/HCPCS: 36415; 71046; 80053; 85025; 86308; 87636; 87651; 93005; 96360; 99284